=== PATIENT | female | born 1990 | race African-American/Black ===

== ENCOUNTER 2025-09-15 16:53 | Emergency (ER) | payer SELFPAY ==
[~2025-09-15] VITALS: Ht 165.1 cm; Wt 85.0 kg
[2025-09-15 17:13] VITALS: O2SAT 99
[2025-09-15 18:29] LABS: BASOPHILS % 0.3 % (0.0-2.0); EOSINOPHILS % 2.7 % (0.0-5.0); HEMATOCRIT. 38.5 % (36.0-48.0); HEMOGLOBIN. 12.7 g/dL (12.0-16.0); LYMPHOCYTES % 20.3 % (20.0-50.0); MEAN PLATELET VOLUME 7.8 fl (7.4-10.4); MONOCYTES % 9.5 % (2.0-8.0); NEUTROPHILS % 67.2 % (40.0-76.0); PLATELET 289 x1000/uL (130-400); RED BLOOD CELL COUNT 4.58 mill/uL (4.2-5.4); RED CELL DISTRIBUTION WIDTH 14.0 % (11.6-14.6)
[2025-09-15 18:43] LABS: CREATININE 0.7 mg/dL (0.6-1.0); PROTEIN TOTAL 7.5 g/dL (6.0-8.3); UREA NITROGEN BLOOD 12 mg/dL (9-23)
[2025-09-15 18:45] LABS: ASPARTATE AMINOTRANSFERASE 21 IU/L (<34); BILIRUBIN DIRECT 0.1 mg/dL (<=3.0); BILIRUBIN TOTAL 0.5 mg/dL (0.1-1.0)
[2025-09-15 18:46] LABS: HCG SCREEN NEGATIVE
[2025-09-15 20:22] LABS: CLARITY URINE CLEAR (CLEAR); COLOR URINE YELLOW (YELLOW); GLUCOSE URINE NEGATIVE (NEGATIVE); KETONES URINE NEGATIVE (NEGATIVE); LEUKOCYTE ESTERASE URINE TRACE (NEGATIVE); NITRITE URINE NEGATIVE (NEGATIVE); OCCULT BLOOD URINE 3+ (NEGATIVE); PH URINE 6.5 (4.5-8.0); PROTEIN URINE 2+ (NEGATIVE); SPECIFIC GRAVITY URINE 1.028 (1.005-1.030); UROBILINOGEN URINE 1.0 E.U./dL (0.2-1.0)
[2025-09-15 20:55] LABS: BACTERIA URINE TRACE; RBC URINE 25-50 /hpf (0-2); SQUAMOUS EPITHELIAL CELL URINE FEW /lpf (RARE/1+)
[2025-09-15 21:06] VITALS: TEMP 36.7; O2SAT 100
[2025-09-15] MEDS ORDERED: IBUP-1455 MT (21:29)
[2025-09-15 21:43] VITALS: BP 134/84; PULSE 88; RESP 14
[2025-09-15] MEDS: IBUPROFEN 600MG TABLET PO ONE (21:43)
== END 2025-09-15 21:45 | disposition home or self-care (01) ==
LOC: ER 16:53
DX: R10.11 Right upper quadrant pain (principal); Z98.890 Other specified postprocedural states
CPT/HCPCS: 36415; 76705; 80048; 80076; 81003; 84703; 85025; 99284